=== PATIENT | male | born 1985 | race Two or more races ===

== ENCOUNTER 2017-08-08 12:15 | Emergency (ER) | payer OTHER ==
[2017-08-08 12:54] VITALS: BP 138/85
[2017-08-08] MEDS ORDERED: IV NORMAL SALINE 1000ML BAG 1,000 ML IV ONE (13:15)
[2017-08-08] MEDS ORDERED: LORazepam 1 MG TABLET PO ONE (13:15)
[2017-08-08 13:48] LABS: BASO # 0.1 x10^3/uL (0.0-0.2); BASO % 1 % (0-3); EOS % 2 % (0-3); HEMATOCRIT 37.9 % (39.0-53.0); LYMPH # 1.7 x10^3/uL (1.0-4.8); LYMPH % 25 % (24-48); MEAN CORPUSCULAR HEMOGLOBIN 32 pg (25-35); MEAN CORPUSCULAR HGB CONC 34 g/dL (31-37); MEAN CORPUSCULAR VOLUME 92 fL (79-100); MONO % 7 % (0-9); NEUT % 65 % (31-73); PLATELET COUNT 186 x10^3/uL (140-400); RED BLOOD COUNT 4.12 x10^6/uL (4.30-5.70); RED CELL DISTRIBUTION WIDTH 12.7 % (11.5-14.5); WHITE BLOOD COUNT 6.8 x10^3/uL (4.0-11.0)
--- NOTE | 2017-08-08 15:25 | PHYS DOC ---
Past Medical History Past Medical History: Arthritis, Hyperthyroid, Other Additional Past Medical Histor: LEUKEMIA 2002 Past Surgical History: Other Additional Past Surgical Histo: BOWEL OBSTRUCTION Alcohol Use: None Drug Use: None Adult General Chief Complaint Chief Complaint: ANXIETY/PANIC ATTACK HPI HPI Patient is a 32 year old male who presents with anxiety. Patient reports about one hour prior to arrival he felt very anxious, experienced palpitations. He states he felt tingling and cool sensation to his right hand and arm. Denies extremity pain or weakness. He also felt some numbness and tingling to his tongue which has resolved completely. Denies chest pain, shortness of breath, facial droop, headache. History of previous episodes of anxiety, states "I am an anxious person" but denies taking any medications for anxiety. History of leukemia 10 years ago now in remission. Review of Systems Review of Systems Constitutional: Denies fever or chills HENT: Denies nasal congestion or sore throat Respiratory: Denies cough or shortness of breath Cardiovascular: Denies chest pain or edema GI: Denies abdominal pain, nausea, vomiting, or diarrhea Musculoskeletal: Reports right upper extremity symptoms as above Integument: Denies rash or skin lesions Neurologic: Denies headache, reports sensory changes to right upper extremity Psychiatric: Reports anxiety Current Medications Current Medications Current Medications Medications (Trade) Dose Ordered Sig/Dustin Start Time Stop Time Status Last Admin Dose Admin Lorazepam (Ativan) 1 mg 1X ONCE 08/08/17 13:15 08/08/17 13:32 DC 08/08/17 13:43 1 MG Sodium Chloride 1,000 ml @ 1,000 mls/hr 1X ONCE 08/08/17 13:15 08/08/17 14:14 DC 08/08/17 13:44 1,000 MLS/HR Allergies Allergies Allergies Coded Allergies Type Severity Reaction Last Updated Verified No Known Drug Allergies 08/08/17 No Physical Exam Physical Exam Constitutional: Well developed, well nourished, anxious HENT: Normocephalic, atraumatic, bilateral external ears normal, oropharynx moist, nose normal. Eyes: PERRLA, EOMI, conjunctiva normal, no discharge. Neck: supple, no stridor. Cardiovascular: RRR, no murmurs, no edema. Lungs & Thorax: LCTAB, no wheezing, no respiratory distress. Abdomen: soft, nontender, nondistended. Skin: Warm, dry, no erythema, no rash. Back: No tenderness. Extremities: right hand slightly cooler than left hand without cyanosis, no upper extremity tenderness, no obvious swelling, normal strength & sensation to bilateral upper extremities, right radial pulse 2+, radial/median/ulner nerve sensory & motor function intact Neurologic: Alert and oriented X 3, CN2-12 grossly intact, symmetric strength & sensation to upper & lower extremities, no focal deficits noted. Psychologic: Affect normal, judgement normal, mood normal. Current Patient Data Vital Signs Vital Signs Date Time Temp Pulse Resp B/P (MAP) Pulse Ox O2 Delivery O2 Flow Rate FiO2 08/08/17 12:54 98.2 78 16 138/85 (102) 100 Room Air 98.2 Lab Values Laboratory Tests Test 08/08/17 13:39 White Blood Count 6.8 x10^3/uL (4.0-11.0) Red Blood Count 4.12 x10^6/uL (4.30-5.70) L Hemoglobin 13.0 g/dL (13.0-17.5) Hematocrit 37.9 % (39.0-53.0) L Mean Corpuscular Volume 92 fL (79-100) Mean Corpuscular Hemoglobin 32 pg (25-35) Mean Corpuscular Hemoglobin Concent 34 g/dL (31-37) Red Cell Distribution Width 12.7 % (11.5-14.5) Platelet Count 186 x10^3/uL (140-400) Neutrophils (%) (Auto) 65 % (31-73) Lymphocytes (%) (Auto) 25 % (24-48) Monocytes (%) (Auto) 7 % (0-9) Eosinophils (%) (Auto) 2 % (0-3) Basophils (%) (Auto) 1 % (0-3) Neutrophils # (Auto) 4.4 x10^3uL (1.8-7.7) Lymphocytes # (Auto) 1.7 x10^3/uL (1.0-4.8) Monocytes # (Auto) 0.5 x10^3/uL (0.0-1.1) Eosinophils # (Auto) 0.1 x10^3/uL (0.0-0.7) Basophils # (Auto) 0.1 x10^3/uL (0.0-0.2) Sodium Level 141 mmol/L (136-145) Potassium Level 4.1 mmol/L (3.5-5.1) Chloride Level 103 mmol/L (98-107) Carbon Dioxide Level 27 mmol/L (21-32) Anion Gap 11 (6-14) Blood Urea Nitrogen 18 mg/dL (8-26) Creatinine 1.0 mg/dL (0.7-1.3) Estimated GFR (Cockcroft-Gault) 85.5 BUN/Creatinine Ratio 18 (6-20) Glucose Level 96 mg/dL (70-99) Calcium Level 9.4 mg/dL (8.5-10.1) Total Bilirubin 0.3 mg/dL (0.2-1.0) Aspartate Amino Transferase (AST) 23 U/L (15-37) Alanine Aminotransferase (ALT) 33 U/L (16-63) Alkaline Phosphatase 71 U/L (46-116) Total Protein 7.4 g/dL (6.4-8.2) Albumin 4.3 g/dL (3.4-5.0) Albumin/Globulin Ratio 1.4 (1.0-1.7) Laboratory Tests 08/08/17 13:39 Laboratory Tests 08/08/17 13:39 EKG EKG [] Radiology/Procedures Radiology/Procedures PROCEDURE: UPPER EXT ARTERIAL RIGHT Ultrasound venous and arterial structures of the right upper extremity 08/08/2017. Reason for exam: Tingling in the arm. Cold hand. Color Doppler and spectral waveform analysis was performed along with real-time grayscale technique. Venous system: The deep venous system of the right upper extremity shows normal Doppler flow and is normally compressible and the accessible segments. The basilic and cephalic veins are also patent, as are the radial and ulnar veins in the forearm and the internal jugular vein. IMPRESSION: No evidence of DVT. Arterial system: Normal triphasic waveforms are shown from the subclavian segment through the axillary and brachial segments and ejection the radial and ulnar arteries. No velocity elevation is seen to indicate a stenosis. IMPRESSION: Normal arterial Doppler study. Electronically signed by: Yenifer Astorga Jr., MD (08/08/2017 4:57 PM) [facility] [place] DICTATED and SIGNED BY: YENIFER ASTORGA Jr, MD DATE: 08/08/17 1655 PROCEDURE: VENOUS UPPER EXTREMITY RIGHT Ultrasound venous and arterial structures of the right upper extremity 08/08/2017. Reason for exam: Tingling in the arm. Cold hand. Color Doppler and spectral waveform analysis was performed along with real-time grayscale technique. Venous system: The deep venous system of the right upper extremity shows normal Doppler flow and is normally compressible and the accessible segments. The basilic and cephalic veins are also patent, as are the radial and ulnar veins in the forearm and the internal jugular vein. IMPRESSION: No evidence of DVT. Arterial system: Normal triphasic waveforms are shown from the subclavian segment through the axillary and brachial segments and ejection the radial and ulnar arteries. No velocity elevation is seen to indicate a stenosis. IMPRESSION: Normal arterial Doppler study. Electronically signed by: Yenifer Astorga Jr., MD (08/08/2017 4:57 PM) [facility] [place] DICTATED and SIGNED BY: YENIFER ASTORGA Jr, MD DATE: 08/08/17 1655 [] Course & Med Decision Making Course & Med Decision Making Pertinent Labs and Imaging studies reviewed. (See chart for details) The patient presents with sensation of cold upper extremity with paresthesias. No findings on exam to suggest stroke. No focal neurologic symptoms identified. Patient is very anxious. Gave Ativan. Obtained labs as well as ultrasound of right upper extremity. No mass or arterial abnormality identified on ultrasound. His hand felt normal after warming under a blanket. Recommend rest, by mouth hydration, follow up with primary care physician if symptoms persist and to discuss management of anxiety which she states is fairly chronic for him. Return to the emergency department for severe chest pain or shortness of breath, focal neurologic deficit, any otherwise worsening condition. Discharged home in stable condition. [] Dragon Disclaimer Dragon Disclaimer This electronic medical record was generated, in whole or in part, using a voice recognition dictation system. Departure Departure Impression: Primary Impression: Paresthesia Disposition: 01 HOME, SELF-CARE Condition: STABLE Referrals: BRADY RENAE MD (PCP) Patient Instructions: Anxiety and Panic Attacks, [id number], Paresthesia, [id number] Additional Instructions: You were seen in the emergency department today for anxiety and hand tingling. Tests did not show any serious cause of symptoms. Please rest, follow-up with primary care physician in 2-3 days. It might be worth considering medication if you are anxious all the time. Come back for numbness or weakness in arms or legs , any otherwise worsening condition. AZAM VOGEL MD Aug 08, 2017 15:25
[2017-08-08 15:32] LABS: CALCIUM 9.4 mg/dL (8.5-10.1); GFR 85.5; POTASSIUM 4.1 mmol/L (3.5-5.1)
[2017-08-08 15:38] LABS: ALBUMIN 4.3 g/dL (3.4-5.0); ALBUMIN/GLOBULIN RATIO 1.4 (1.0-1.7); TOTAL BILIRUBIN 0.3 mg/dL (0.2-1.0); TOTAL PROTEIN 7.4 g/dL (6.4-8.2)
--- NOTE | 2017-08-08 17:00 | RAD ---
Ultrasound venous and arterial structures of the right upper extremity 08/08/2017. Reason for exam: Tingling in the arm. Cold hand. Color Doppler and spectral waveform analysis was performed along with real-time grayscale technique. Venous system: The deep venous system of the right upper extremity shows normal Doppler flow and is normally compressible and the accessible segments. The basilic and cephalic veins are also patent, as are the radial and ulnar veins in the forearm and the internal jugular vein. IMPRESSION: No evidence of DVT. Arterial system: Normal triphasic waveforms are shown from the subclavian segment through the axillary and brachial segments and ejection the radial and ulnar arteries. No velocity elevation is seen to indicate a stenosis. IMPRESSION: Normal arterial Doppler study. Electronically signed by: Bebo Willard Jr., MD (08/08/2017 4:57 PM) [facility] [place]
== END 2017-08-08 17:27 | disposition home or self-care (01) ==
LOC: ER 12:15
DX: R20.2 Paresthesia of skin (principal); M19.90 Unspecified osteoarthritis, unspecified site; Z85.6 Personal history of leukemia
CPT/HCPCS: 36415; 80053; 85025; 93931; 93971; 96360; 99285; J7030